=== PATIENT | male | born 1940 | race Two or more races ===

== ENCOUNTER → 2017-01-18 | Outpatient (CLI) | payer MEDICARE, BC ==
--- NOTE | 2017-01-18 15:22 | RADRPT ---
Echocardiogram Report Patient Name: KAR CUELLAR Gender: Male Date: 1940 Study Date: 18-Jan-2017 Adjunct Faculty Mathematics Department: Esmer Franklin RDCS Location: EKG Ref. Physician: DARRON DUVAL Quality: Good Procedures: Transthoracic echocardiogram with complete 2D, M-Mode, and doppler examination. Indications: Aortic Stenosis. 2D/M Mode Doppler Measurement Value Normal Ranges Measurement Value Normal Ranges LVIDd 2D 5.5 3.5 - 5.6 cm HELENA Vmax 0.8 cm2 LVIDs 2D 2.9 2.1 - 4.1 cm HELENA VTI 0.8 cm2 LVPWd 2D 1.5 0.6 - 1.1 cm AV Mean Toi 4.0 m/sec IVSd 2D 1.9 0.6 - 1.1 cm AV Mean PG 74.4 mmHg AoR Diam 2D 3.1 2.0 - 3.7 cm AV Peak Toi 5.7 m/sec EDV 2D 74.9 cm3 AV Peak PG 128.0 mmHg ESV 2D 24.3 cm3 AV VTI 121.8 cm LA Dimen 2D 4.4 2.3 - 4.0 cm LVOT Mean Toi 1.1 m/sec LVOT Diam 2.0 cm LVOT Mean PG 5.5 mmHg LVOT Peak Toi 1.5 m/sec LVOT Peak PG 8.7 mmHg LVOT VTI 35.7 cm MV E Peak Toi 1.0 m/sec MV A Peak Toi 1.0 m/sec MV E/A 1.0 MV Decel Time 247 msec MV Decel [place] 4 MV E/A 1.0 TR Peak Toi 1.7 m/sec TR Peak PG 11.6 mmHg RVSP 15.0 mmHg Findings Left Ventricle: Hyperdynamic left ventricular systolic function. Normal left ventricular cavity size. Moderate to severe asymmetric septal hypertrophy. Ejection fraction is visually estimated at 70 %. Tissue Doppler/Mitral Doppler indices are consistent with impaired relaxation (Stage I diastolic dysfunction). Right Ventricle: Normal right ventricular size. Normal right ventricular systolic function. Left Atrium: There is mild enlargement of left atrium. Right Atrium: The right atrium is normal in size. Mitral Valve: Mitral valve leaflets appear mildly thickened. Moderate mitral annular calcification. Trace mitral regurgitation. Aortic Valve: Severe aortic stenosis. Aortic valve Max velocity 5.66 m/sec. Max PG 128.00 mmHg. Mean PG 74.00 mmHg. Aortic cusps appear severely calcified. Trace aortic valve regurgitation. Tricuspid Valve: Normal appearance of the tricuspid valve. Estimated peak PA systolic pressure 15 mmHg. There is trace tricuspid regurgitation. Pulmonic Valve: Pulmonic valve not well visualized. No evidence of pulmonic regurgitation. Pericardium: Normal pericardium with no significant pericardial effusion. Aorta: Normal aortic root. IVC: Normal size and normal respiratory collapse consistent with normal right atrial pressure. Conclusions 1.Hyperdynamic left ventricular systolic function. Normal left ventricular cavity size. Moderate to severe left ventricular hypertrophy. Ejection fraction is visually estimated at 70 %. Tissue Doppler/Mitral Doppler indices are consistent with impaired relaxation (Stage I diastolic dysfunction). 2.Normal right ventricular size. Normal right ventricular systolic function. 3.There is mild enlargement of left atrium. 4.The right atrium is normal in size. 5.Severe aortic stenosis. Aortic valve area 0.9-1.1 cm2. Trace aortic valve regurgitation. 6.Trace mitral regurgitation. 7.Normal pericardium with no significant pericardial effusion. Electronically Signed By: Darron Duval 18-Jan-2017 15:22:13 -0700 Patient Name: KAR CUELLAR Study Date: 18-Jan-2017 [id number]
== END | disposition home or self-care (01) ==
LOC: EKG 09:22
PROVIDERS: ATTEND Internal Medicine Cardiovascular Disease
DX: I35.0 Nonrheumatic aortic (valve) stenosis (principal)
CPT/HCPCS: 93306